=== PATIENT | female | born 1960 ===

== ENCOUNTER 2023-10-29 06:34 | Day surgery (SDC) | payer OTHER | END 2023-10-29 14:40 | disposition home or self-care (01) | LOC: AMB-ENDOS 06:34 → CIR.AMB 10:30 → AMB-ENDOS 14:40 | PROVIDERS: ATTEND Surgery | DX: D12.2 Benign neoplasm of ascending colon (principal); K63.5 Polyp of colon; K57.30 Diverticulosis of large intestine without perforation or abscess without bleeding; Z91.041 Radiographic dye allergy status; Z20.822 Contact with and (suspected) exposure to COVID-19 ==